=== PATIENT | male | born 1960 | race Asian ===

== ENCOUNTER 2019-07-24 07:31 | Outpatient (CLI) | payer OTHER | END 2019-07-24 23:17 | disposition home or self-care (01) | LOC: NM 07:31 | DX: R07.9 Chest pain, unspecified (principal) | CPT/HCPCS: A9500; J2785 ==

== ENCOUNTER 2021-12-02 11:20 | Outpatient (CLI) | payer OTHER ==
[2021-12-02 12:42] LABS: POTASSIUM 4.5 mmol/L (3.6-5.2)
== END 2021-12-02 20:40 | disposition home or self-care (01) ==
LOC: LAB 11:20
PROVIDERS: ATTEND Internal Medicine
DX: E11.9 Type 2 diabetes mellitus without complications (principal)
CPT/HCPCS: 80053; 80061; 83036

== ENCOUNTER 2023-06-08 13:09 | Emergency (ER) | payer OTHER ==
[~2023-06-08] VITALS: Ht 172.7 cm; Wt 93.4 kg
[2023-06-08 13:12] VITALS: TEMP 99.9
[2023-06-08 14:00] VITALS: BP 152/79
== END 2023-06-08 14:03 | disposition home or self-care (01) ==
LOC: ED 13:09
DX: J32.9 Chronic sinusitis, unspecified (principal); J06.9 Acute upper respiratory infection, unspecified
CPT/HCPCS: 87502; 87635; 99283; U0003